=== PATIENT | female | born 1990 | race African-American/Black ===

== ENCOUNTER 2017-06-11 05:36 | Emergency (ER) | payer SELFPAY, BC ==
[2017-06-11] MEDS ORDERED: IBUPROFEN 800 MG TABLET. PO (06:13)
[2017-06-11] MEDS: IBUPROFEN 800 MG TABLET. PO (06:23)
[2017-06-11] MEDS: IV NORMAL SALINE 1000ML BAG 1,000 ML IV (06:38)
[2017-06-11 06:54] LABS: BASO % 0 % (0-3); EOS % 0 % (0-3); HEMATOCRIT 41.3 % (36.0-47.0); HEMOGLOBIN 14.1 g/dL (12.0-15.5); LYMPH # 0.3 x10^3/uL (1.0-4.8); LYMPH % 4 % (24-48); MEAN CORPUSCULAR HEMOGLOBIN 32 pg (25-35); MEAN CORPUSCULAR HGB CONC 34 g/dL (31-37); MEAN CORPUSCULAR VOLUME 94 fL (79-100); MONO # 0.7 x10^3/uL (0.0-1.1); MONO % 9 % (0-9); NEUT % 87 % (31-73); PLATELET COUNT 333 x10^3/uL (140-400); RED CELL DISTRIBUTION WIDTH 12.1 % (11.5-14.5); WHITE BLOOD COUNT 8.1 x10^3/uL (4.0-11.0)
[2017-06-11 06:56] LABS: INFLUENZA A PATIENT POSITIVE (NEGATIVE); INFLUENZA B PATIENT NEGATIVE (NEGATIVE); OBC FLU VALID
[2017-06-11 06:58] LABS: ADD MAN DIFF? YES
[2017-06-11 07:11] LABS: LACTIC ACID 1.8 mmol/L (0.4-2.0)
[2017-06-11 07:25] LABS: URINE HCG POC HCG NEGATIVE (Negative)
[2017-06-11] MEDS: ACETAMINOPHEN 500 MG TABLET PO (07:27)
[2017-06-11 07:41] LABS: ANION GAP 12 (6-14); BILIRUBIN,URINE NEGATIVE (NEG); BLOOD UREA NITROGEN 12 mg/dL (7-20); BUN/CREATININE RATIO 15 (6-20); CALCIUM 8.5 mg/dL (8.5-10.1); CARBON DIOXIDE 24 mmol/L (21-32); CHLORIDE 104 mmol/L (98-107); CLARITY,URINE CLEAR; COLOR,URINE YELLOW; CREATININE 0.8 mg/dL (0.6-1.0); GFR 103.3; GLUCOSE 109 mg/dL (70-99); GLUCOSE,URINE NEGATIVE (NEG); NITRITE,URINE NEGATIVE (NEG); POTASSIUM 3.4 mmol/L (3.5-5.1); PROTEIN,URINE NEGATIVE (NEG-TRACE); SODIUM 140 mmol/L (136-145)
[2017-06-11 07:47] LABS: ALBUMIN 3.5 g/dL (3.4-5.0); ALBUMIN/GLOBULIN RATIO 0.9 (1.0-1.7); ALK PHOS 61 U/L (46-116); ALT (SGPT) 39 U/L (14-59); AST (SGOT) 30 U/L (15-37); TOTAL BILIRUBIN 0.2 mg/dL (0.2-1.0); TOTAL PROTEIN 7.5 g/dL (6.4-8.2)
[2017-06-11 07:52] LABS: BACTERIA,URINE FEW /HPF (0-FEW); RBC,URINE OCC /HPF (0-2); SQUAMOUS EPITHELIAL CELL,UR FEW /LPF; WBC,URINE OCC /HPF (0-4)
[2017-06-11 08:24] LABS: NEGATIVE OBC STREP NEG; POSITIVE OBC STREP POS
[2017-06-11 12:43] LABS: % ATYL 2 % (0-0); % BANDS 13 % (0-9); % BASOS 1 % (0-3); % LYMPHS 1 % (24-48); % MONOS 2 % (0-10); % SEGS 81 % (35-66); PLT ESTIMATE ADEQUATE (ADEQUATE)
== END 2017-06-11 08:32 | disposition home or self-care (01) ==
LOC: ER 05:36
DX: J09.X2 Influenza due to identified novel influenza A virus with other respiratory manifestations (principal)
CPT/HCPCS: 36415; 71046; 80053; 81001; 81025; 83605; 85007; 85025; 87040; 87070; 87804; 87804-59; 87880; 96360; 96361; 99285-25; J7030

== ENCOUNTER 2019-03-19 21:02 | Emergency (ER) | payer OTHER ==
[~2019-03-19] VITALS: Ht 165.1 cm; Wt 78.5 kg
[~2019-03-19 21:02] MED LIST: OSEL75CA PO; birth control
[2019-03-19 21:05] VITALS: BP 165/99
[2019-03-19] MEDS ORDERED: HYDR-3164 PO (21:58)
--- NOTE | 2019-03-19 21:59 | PHYS DOC ---
Past Medical History Past Medical History: No Pertinent History (MARCELLUS HO APRN) Past Surgical History: (MARCELLUS HO APRN) Alcohol Use: Occasionally Drug Use: None (MARCELLUS HO APRN) Attending Signature I have participated in the care of this patient and I have reviewed and agree with all pertinent clinical information above including history, exam, and recommendations. (WHITNEY ABURTO MD) Adult General Chief Complaint Chief Complaint: DENTAL PROBLEM HPI HPI Patient is a 28 year old female who presents with patient complains of right front tooth sensitivity for last couple of days. Patient states she's been trying everything [id number] but is not helping. She states is very sensitive to temperatures and fluids or food. Rates her pain a 9 out of 10. She states she has had a crown in that tooth in the past. (MARCELLUS HO APRN) Review of Systems Review of Systems HENT: Denies nasal congestion or sore throat. Front right tooth pain [] All other systems were reviewed and found to be within normal limits, except as documented in this note. (MARCELLUS HO APRN) Allergies Allergies Allergies Coded Allergies Type Severity Reaction Last Updated Verified No Known Drug Allergies 10/27/14 No (WHITNEY ABURTO MD) Physical Exam Physical Exam Constitutional: Well developed, well nourished, no acute distress, non-toxic appearance. [] HENT: Normocephalic, atraumatic, bilateral external ears normal, oropharynx moist, no oral exudates, nose normal. [] Neck: Normal range of motion, no tenderness, supple, no stridor. [] Skin: Warm, dry, no erythema, no rash. [] Neurologic: Alert and oriented X 3, normal motor function, normal sensory function, no focal deficits noted. [] Psychologic: Affect normal, judgement normal, mood normal. [] Normal Physical Exam (MARCELLUS HO APRN) Current Patient Data Vital Signs Vital Signs Date Time Temp Pulse Resp B/P (MAP) Pulse Ox O2 Delivery O2 Flow Rate FiO2 03/19/19 21:05 98.7 84 20 165/99 (121) 99 Room Air 98.7 (WHITNEY ABURTO MD) EKG EKG [] (MARCELLUS HO APRN) Radiology/Procedures Radiology/Procedures [] (MARCELLUS HO APRN) Course & Med Decision Making Course & Med Decision Making No swelling of the face or the fever. Alert and oriented. Speaks in full clear sentences. No gumline redness, swelling or drainage. No dental caries seen. Patient is given emergency dental resources. Afebrile. The front right tooth is not broken or loose. (MARCELLUS HO APRN) Dragon Disclaimer Dragon Disclaimer This electronic medical record was generated, in whole or in part, using a voice recognition dictation system. (MARCELLUS HO APRN) Departure Departure Impression: Primary Impression: Pain, dental Disposition: HOME, SELF-CARE Condition: STABLE Referrals: NO PCP (PCP) Patient Instructions: Dental Pain Additional Instructions: [facility] [phone] Scripts Hydrocodone/Apap 5-325 (NORCO 5-325 TABLET) 1 Each Tablet 1 TAB PO PRN Q6HRS PRN for PAIN, #10 TAB 0 Refills Prov: MARCELLUS HO APRN 03/19/19 MARCELLUS HO APRN Mar 19, 2019 21:59 WHITNEY ABURTO MD Mar 20, 2019 18:20
== END 2019-03-19 22:08 | disposition home or self-care (01) ==
LOC: ER 21:02
DX: K08.89 Other specified disorders of teeth and supporting structures (principal)
CPT/HCPCS: 99283

== ENCOUNTER 2020-05-13 17:10 | Emergency (ER) | payer OTHER ==
[~2020-05-13] VITALS: Ht 165.1 cm; Wt 90.0 kg
[~2020-05-13 17:10] MED LIST changes: +HYDR-3164 PO
[2020-05-13 17:56] VITALS: BP 135/69
--- NOTE | 2020-05-13 18:10 | PHYS DOC ---
Past Medical History Past Medical History: No Pertinent History Past Surgical History: Smoking Status: Never Smoker Alcohol Use: Occasionally Drug Use: None General Adult EDM: Chief Complaint: VAGINAL PROBLEM HPI: HPI: Patient is a 30 year old female who arrives with chief complaint of vaginal laceration. Patient states she was with friends last night and was partying and had a mechanical fall and landed on something and sustained 2 lacerations to her vagina. This happened around 4 AM. Patient denies any sexual assault or sexual abuse. Patient denies any other complaints. Patient has mild discomfort in the vaginal area. Pain is nonradiating Review of Systems: Review of Systems: Constitutional: Denies fever or chills. [] Eyes: Denies change in visual acuity. [] HENT: Denies nasal congestion or sore throat. [] Respiratory: Denies cough or shortness of breath. [] Cardiovascular: Denies chest pain or edema. [] GI: Denies abdominal pain, nausea, vomiting, bloody stools or diarrhea. [] : Denies dysuria. [] Musculoskeletal: Denies back pain or joint pain. [] Integument: Denies rash. [] Complains of laceration of the vaginal area Neurologic: Denies headache, focal weakness or sensory changes. [] Endocrine: Denies polyuria or polydipsia. [] Lymphatic: Denies swollen glands. [] Psychiatric: Denies depression or anxiety. [] Heart Score: Risk Factors: Risk Factors: DM, Current or recent (<one month) smoker, HTN, HLP, family history of CAD, obesity. Risk Scores: Score 0 - 3: 2.5% MACE over next 6 weeks - Discharge Home Score 4 - 6: 20.3% MACE over next 6 weeks - Admit for Clinical Observation Score 7 - 10: 72.7% MACE over next 6 weeks - Early Invasive Strategies Current Medications: Active Scripts Active [place] 5-325 Tablet (Acetaminophen/Hydrocodone Bitart) 1 Each Tablet 1 Tab PO PRN Q6HRS PRN Tamiflu (Oseltamivir Phosphate) 75 Mg Capsule 1 Cap PO BID 5 Days Reported [ control] Allergies: Allergies: Allergies Coded Allergies Type Severity Reaction Last Updated Verified No Known Drug Allergies 10/27/14 No Physical Exam: PE: Constitutional: Well developed, well nourished, no acute distress, non-toxic appearance. [] HENT: Normocephalic, atraumatic, bilateral external ears normal, no trismus, nose normal. [] Eyes: PERRLA, EOMI, conjunctiva normal, no discharge. [] Neck: Normal range of motion, no tenderness, supple, no stridor. [] Cardiovascular:Heart rate regular rhythm, peripheral pulse intact cap refills brisk Lungs & Thorax: Bilateral breath sounds clear, no respiratory distress Abdomen: soft, no tenderness, no masses, no pulsatile masses. [] exam: [employer] Supervisor present, external exam superficial laceration on the left labia and slightly deeper laceration measuring about 1.5 cm on the left side of the inner vaginal area. No active bleeding. There appears to be some early granulation tissue present Skin: Warm, dry, no erythema, no rash. [] Back: No tenderness, no CVA tenderness. [] Extremities: No tenderness, no cyanosis, no clubbing, ROM intact, no edema. [] Neurologic: Alert and oriented X 3, normal motor function, normal sensory function, no focal deficits noted. [] Psychologic: Affect normal, judgement normal, mood normal. [] Current Patient Data: Vital Signs: Vital Signs Date Time Temp Pulse Resp B/P (MAP) Pulse Ox O2 Delivery O2 Flow Rate FiO2 05/13/20 17:56 98.8 93 16 135/69 (91) 99 Room Air 98.8 EKG: EKG: [] Radiology/Procedures: Radiology/Procedures: [] Course & Med Decision Making: Course & Med Decision Making Pertinent Labs and Imaging studies reviewed. (See chart for details) [] 30-year-old female presents with vaginal lacerations from a fall over 12 hours prior to arrival. There appears to be granulation tissue with no active bleeding. The wound approximates well. I discussed with patient that I do not feel like he needs to be sutured. I discussed with her cleaning it with soap and water and applying a thin layer of antibiotic ointment as needed. I I told her to avoid anything in her vagina until this heals. Radha Disclaimer: Radha Disclaimer: This electronic medical record was generated, in whole or in part, using a voice recognition dictation system. Departure Departure Impression: Primary Impression: Vaginal laceration Disposition: 01 DC HOME SELF CARE/HOMELESS Condition: STABLE Referrals: NO PCP (PCP) [address] [place] [address] [facility] [address] [place] [address] [facility] [address] Griffin MD Patient Instructions: Vaginal Laceration Additional Instructions: EMERGENCY DEPARTMENT GENERAL DISCHARGE INSTRUCTIONS THANK YOU for coming to [facility] Emergency Department (ED) today and trusting us with your care. We trust that you had a positive experience in our Emergency Department. If you wish to speak to the department Management you can contact the supervisor winding department at . YOUR FOLLOW UP INSTRUCTIONS ARE FOLLOWS: Do you have a private doctor? If you do not have a private doctor, please ask for a resource list of physicians or clinics that may be able to assist you with follow up care. The Emergency Physician has interpreted your x-rays. The X-ray specialist will also review them. If there is a change in the findings you will be notified in 48 hours when at all possible. A lab test or lab culture may have been done, your results will be reviewed and you will be notified if you need a change in treatment. ADDITIONAL INSTRUCTIONS AND INFORMATION Your care today has been supervised by a physician who is specially trained in emergency care. Many problems require more than one evaluation for a complete diagnosis and treatment. We recommend that you schedule your follow up appointment as recommended to ensure complete treatment of your illness or injury. If you are unable to obtain follow up care and continue to have a problem, or if your condition worsens we recommend that you return to the ED. We are not able to safely determine your condition over the phone nor are we able to give sound medical advice over the phone. For these safety reasons, if you call for medical advice we will ask you to come to the ED for further evaluation If you have any questions regarding these discharge instructions please call the ED at . SAFETY INFORMATION In the interest of safety, wellness, and injury prevention; we encourage you to wear your seatbelt, if you smoke; quit smoking, and we encourage your family to use protective helmet for bicycling and other sporting events that present an increased risk for head injury. IF YOUR SYMPTOMS WORSEN OR NEW SYMPTOMS DEVELOP, OR YOU HAVE CONCERNS ABOUT YOUR CONDITION; OR IF YOUR CONDITION WORSENS WHILE YOU ARE WAITING FOR YOUR FOLLOW UP APPOINTMENT; EITHER CONTACT YOUR PRIMARY CARE DOCTOR, THE PHYSICIAN WHOSE NAME AND NUMBER YOU WERE GIVEN, OR RETURN TO THE ED IMMEDIATELY. Please do not have sexual intercourse or use tampons until laceration is healed ZULEYMA PARRA MD May 13, 2020 18:10
== END 2020-05-13 20:09 | disposition home or self-care (01) ==
LOC: ER 17:10
DX: S31.41XA Laceration without foreign body of vagina and vulva, initial encounter (principal); W18.39XA Other fall on same level, initial encounter; Y93.89 Activity, other specified; Y92.89 Other specified places as the place of occurrence of the external cause; Y99.8 Other external cause status
CPT/HCPCS: 99284